=== PATIENT | male | born 1950 | race Caucasian/White ===

== ENCOUNTER 2024-06-17 20:13 | Inpatient (IN) | payer OTHER, MEDICAID ==
[~2024-06-17] VITALS: Ht 167.6 cm; Wt 78.5 kg
--- NOTE | 2024-06-17 20:30 | ED.PDOC ---
Altered Mental Status HPI Comments 67 year old male brought in by EMS presents to the ED with a chief complaint of ALOC onset today around 20:00. Per EMS, patient was with friends, they noticed he was drinking soda all day and around 20:00 was altered, confused and arms were twitching. Friends also stated patient was altered about 2 days ago, reso lved shortly after on its own. Upon EMS arrival, blood glucose read high, sinus tachycardiac with 120 bpm. It is unknown if patient is complaint with his medication. Patient is able to state his name and year. PMHx DM, HTN. Chief Complaint: ALOC Time Seen by MD: 20:22 Reviewed Notes: Medications, Allergies Allergies: Coded Allergies: No Known Drug Allergy (Verified Allergy, Unknown, 06/17/24) Information Source: Patient, Emergency Med Personnel Mode of Arrival: EMS Severity: Moderate Timing: Hours Duration: Since onset Prehospital treatment: None Quality: Change in Behavior, Confusion Recent: None History of: Diabetes Past Medical History PAST MEDICAL HISTORY: DM, HTN Surgical History: Unknown Family History Family History: Unknown Social History Smoker: Non-Smoker Alcohol: Denies ETOH Use Drugs: Denies Drug Use Lives In: Home Unable to Obtain due to: Altered Mental Status Physical Exam General Appearance: Mild Distress HEENT: Other (pupils and face symmetric. moist mucous membranes.) Neck: Full Range of Motion, Normal Inspection Respiratory: Lungs Clear, No Accessory Muscle Use, No Respiratory Distress, Normal Breath Sounds Cardiovascular: No Edema, No JVD, Tachycardia Breast Exam: Deferred Gastrointestinal: Non Tender, Soft Genitalia: Deferred Pelvic: Deferred Rectal: Deferred Extremities: Normal inspection, Normal range of motion, Non-tender, No pedal edema Neurologic: Alert (oriented x 2), Normal Affect, Normal Mood, Other (moves all extremities. no gross focal deficit.) Cerebellar Function: NOT DONE Reflexes: NOT DONE Skin: Dry, Normal Color, Warm Lymphatic: NOT DONE Was a procedure done? Was a procedure done?: No Differential Diagnosis (ALOC) Differential Diagnosis: Dehydration, DKA, Encephalopathy, Sepsis, CVA, SAH, Drug Overdose, ETOH Intoxication, Other (DKA, hyperglycemic hyperosmolar state, among others) X-Ray, Labs, Meds, VS Vital Signs Date Time Temp Pulse Resp B/P (MAP) Pulse Ox O2 Delivery O2 Flow Rate FiO2 06/17/24 20:27 98.2 120 24 170/130 (143) 98 06/17/24 20:16 105 Lab Test 06/17/24 23:36 06/17/24 22:50 06/17/24 21:51 06/17/24 20:58 Range/Units POC Glucose 434 *H 70-106 mg/dl Lactic Acid Level 3.8 *H 3.4 *H 0.4-2.0 mmol/L Troponin I High Sensitivity 12 10 </=54 ng/L White Blood Count 12.2 H 4.4-10.8 10^3/uL Red Blood Count 5.37 4.5-5.90 10^6/uL Hemoglobin 17.0 13.5-17.5 g/dL Hematocrit 49.2 41.0-53.0 % Mean Corpuscular Volume 91.6 80.0-100.0 fL Mean Corpuscular Hemoglobin 31.6 28.0-32.0 pg Mean Corpuscular Hemoglobin Concent 34.5 32.0-36.0 g/dL Red Cell Distribution Width 13.1 11.8-14.3 % Platelet Count 306 140-450 10^3/uL Mean Platelet Volume 9.0 6.9-10.8 fL Neutrophils (%) (Auto) 93.2 H 37.0-80.0 % Lymphocytes (%) (Auto) 5.1 L 10.0-50.0 % Monocytes (%) (Auto) 1.1 0.0-12.0 % Eosinophils (%) (Auto) 0.0 0.0-7.0 % Basophils (%) (Auto) 0.6 0.0-2.0 % Neutrophils # (Auto) 11.4 H 1.6-8.6 10 ^3/uL Lymphocytes # (Auto) 0.6 0.4-5.4 10 ^3/uL Monocytes # (Auto) 0.1 0-1.3 10 ^3/uL Eosinophils # (Auto) 0 0-0.8 10 ^3/uL Basophils # (Auto) 0.1 0-0.2 10 ^3/uL Nucleated Red Blood Cells 0.0 % Sodium Level 134 L 136-145 mmol/L Potassium Level 4.2 3.5-5.1 mmol/L Chloride Level 96 L 98-107 mmol/L Carbon Dioxide Level 22 20-31 mmol/L Anion Gap 16 H 5-15 Blood Urea Nitrogen 16 9-23 mg/dL Creatinine 1.25 0.700-1.30 mg/dL Glomerular Filtration Rate Calc 63 >90 mL/min BUN/Creatinine Ratio 12.8 10.0-20.0 Serum Glucose 541 *H 74-106 mg/dL Serum Osmolality 314 H 278-298 mOsm/kg Calcium Level 10.7 H 8.7-10.4 mg/dL Phosphorus Level 3.2 2.4-5.1 mg/dL Total Bilirubin 2.0 H 0.2-1.0 mg/dL Aspartate Amino Transferase (AST) 17 13-40 U/L Alanine Aminotransferase (ALT) 35 7-40 U/L Alkaline Phosphatase 128 H 46-116 U/L B-Type Natriuretic Peptide 39.53 0-100 pg/mL Total Protein 8.0 5.7-8.2 g/dL Albumin 5.4 H 3.2-4.8 g/dL Beta-Hydroxybutyric Acid 2.492 H < 0.4 mmol/L Plasma/Serum Blood Alcohol 4.3 <10 mg/dL Current Medications Medications (Trade) Dose Ordered Sig/Oj Route Start Time Stop Time Status Last Admin Sodium Chloride 1,000 ml @ 1,000 mls/hr Q1H ONCE IV 06/17/24 20:30 06/17/24 21:29 DC 06/17/24 22:33 Insulin Human Regular (InsuLIN R) 10 units ONCE ONCE IV 06/17/24 20:30 06/17/24 20:31 DC 06/17/24 20:52 Insulin Glargine (Lantus) 15 units ONCE ONCE SC 06/17/24 23:00 06/17/24 23:01 DC 06/17/24 23:30 ORDERING PHYSICIAN: KERRIE BERGER MD PROCEDURE(s): CXRP - CHEST PORTABLE REASON: aloc ORDER NUMBER(s): [id number], ACCESSION NUMBER(s): [id number] CHEST RADIOGRAPH Indication: aloc Technique: Single frontal view of the chest was obtained COMPARISON: None FINDINGS: Lines and Tubes: None Lungs: Clear Pleura: No effusion. No pneumothorax. Cardiomediastinal contours: Unremarkable Bones: Unremarkable IMPRESSION: 1. No acute disease. ATED BY: ERIKA PRIETO MD DICTATED DATE/TIME: 06/17/242129 SIGNED BY: ERIKA PRIETO MD SIGNED DATE/TIME: 06/17/242129 \ORDERING PHYSICIAN: KERRIE BERGER MD PROCEDURE(s): HWOCT - HEAD WITHOUT CONTRAST REASON: aloc ORDER NUMBER(s): [id number], ACCESSION NUMBER(s): [id number] CT BRAIN WITHOUT CONTRAST HISTORY: aloc TECHNIQUE: Axial scans were obtained from the skull base through the vertex without contrast. Sagittal and coronal reformats were generated. One or more of the following radiation dose reduction techniques were used for this examina tion: automated exposure control, adjustment of the mA and/or kV according to patient size, use of iterative reconstruction technique. COMPARISON: None FINDINGS: No acute intracranial hemorrhage or evidence of large vessel territorial infarction identified at this time. Mild generalized cerebral atrophy. Patchy periventricular and subcortical white matter hypoattenuation are noted. Bilateral basal ganglia calcifications as well. No midline shift. The basilar cisterns are patent. Opacification of the imaged right maxillary sinus which demonstrates heterogeneous calcification. The mastoid air cells are clear. No grossly dis placed calvarial abnormalities identified. IMPRESSION: No acute intracranial findings. Nonspecific white matter changes which may be sequelae of chronic microangiopathy. If there is persistent clinical concern, especially for infarct, MRI is recommended to further evaluate. Opacification of the partially imaged right maxillary sinus with calcifications. This may be sequelae of chronic sinusitis and/or remote injury. Please correlate clinically. ATED BY: SHEN ESPINO MD DICTATED DATE/TIME: 06/17/242137 SIGNED BY: SHEN ESPINO MD SIGNED DATE/TIME: 06/17/242137 X-Ray, Labs, Meds, VS Comment 67-year-old male with a history of diabetes and hypertension brought in by EMS with altered mental status and hyperglycemia Vitals remarkable for heart rate 120 Exam remarkable for confusion, oriented x2, tachycardia Rhythm strip independently interpreted by me: Sinus tach, rate 115, no ectopy. Chest x-ray unremarkable Head CT IMPRESSION: No acute intracranial findings. Nonspecific white matter changes which may be sequelae of chronic microangiopathy. If there is persistent clinical concern, especially for infarct, MRI is recommended to further evaluate. Opacification of the partially imaged right maxillary sinus with calcifications. This may be sequelae of chronic sinusitis and/or remote injury. Please correlate clinically. CBC remarkable for WBC 12.2, metabolic panel remarkable for sodium 134, chloride 96, glucose 541, anion gap 16, lactate 3.4, beta hydroxybutyrate 2.492, troponins negative Patient treated with the following in the ED: 1 L 0.9 normal saline IV bolus, regular insulin 10 units IV, started on insulin drip protocol On re-evaluation, patient is still confused. He refused ABG. Plan is to admit the patient for glucose control, and Neurology evaluation. Time of 1ST Reevaluation: 20:52 Reevaluation 1ST: Unchanged Patient Education/Counseling: Diagnosis, Treatment, Prognosis Family Education/Counseling: No Family Present Additional Information The following tests were ordered, and results were reviewed by me: EKG, TROP - x3, CBC, CMP, LA W/ REFLEX, UA, XY CHEST, DRUG SCREEN, BLOOD CULTURE, BLOOD ALCOHOL, BNP, ABG W/ CO-0X, BETA-HYDROXYBUTYRATE, CT HEAD WO CONTRAST I reviewed and agreed with the following test results read by other providers: CT HEAD WO CONTRAST, XY CHEST Additional Information was gathered from interviewing the following independent historians: EMS I discussed treatment and results with medical personnel and: patient Departure 1 Departure Time of Disposition: 23:02 Impression: Primary Impression: Metabolic encephalopathy Additional Impression: DKA (diabetic ketoacidosis) Qualified Codes: E13.10 - Other specified diabetes mellitus with ketoacidosis without coma Disposition: ADMITTED INPATIENT Admit to: [facility] Condition: Serious Critical Care Note Critical Care Time?: Yes (45 min-critical care time only) Critical care comment: Critical care time including multiple bedside re-evaluations, review of lab and imaging studies, discussion of the case with the admitting provider. Patient is high risk for metabolic and/or neurologic decompensation. Stability Stability form required: No Heart Score Heart Score: Heart Score Response (Comments) Value History N/A 0 EKG N/A 0 Age N/A 0 Risk Factors N/A 0 Troponin N/A 0 Total 0 I personally scribed for KERRIE BERGER MD ([facility] on 2/12/25 at 20:30. Electronically submitted by Maranda Gonzalez ([email or web address]). I personally scribed for KERRIE BERGER MD ([facility]) on 06/17/24 at 20:32. Electronically submitted by Maranda Gonzalez ([email or web address]). I personally scribed for KERRIE BERGER MD ([facility]) on 06/17/24 at 21:49. Electronically submitted by Maranda Gonzalez ([email or web address]). KERRIE BERGER MD Jun 17, 2024 20:30
[2024-06-17] MEDS: InsuLIN REG 1unit/0.01ml Soln (100units/ml) IV ONE (20:52)
[2024-06-17 21:18] LABS: Basophils # (auto) 0.1 10 ^3/uL (0-0.2); Basophils % (auto) 0.6 % (0.0-2.0); Eosinophils # (auto) 0 10 ^3/uL (0-0.8); Hematocrit 49.2 % (41.0-53.0); Lymphocytes # (auto) 0.6 10 ^3/uL (0.4-5.4); Lymphocytes % (auto) 5.1 % (10.0-50.0); Mean Corpuscular Hemoglobin 31.6 pg (28.0-32.0); Mean Corpuscular Hgb Conc. 34.5 g/dL (32.0-36.0); Mean Corpuscular Volume 91.6 fL (80.0-100.0); Monocytes # (auto) 0.1 10 ^3/uL (0-1.3); Monocytes % (auto) 1.1 % (0.0-12.0); Neutrophils # (auto) 11.4 10 ^3/uL (1.6-8.6); Neutrophils % (auto) 93.2 % (37.0-80.0); Platelet Count (auto) 306 10^3/uL (140-450); Red Blood Cells 5.37 10^6/uL (4.5-5.90); Red Cell Distribution Width 13.1 % (11.8-14.3); White Blood Cell 12.2 10^3/uL (4.4-10.8)
[2024-06-17 21:29] LABS: Alanine Aminotransferase 35 U/L (7-40); Anion Gap 16 (5-15); Aspartate Aminotransferase 17 U/L (13-40); BUN/Creatinine Ratio 12.8 (10.0-20.0); Blood Alcohol 4.3 mg/dL (<10); Blood Urea Nitrogen 16 mg/dL (9-23); Carbon Dioxide 22 mmol/L (20-31); Potassium 4.2 mmol/L (3.5-5.1)
--- NOTE | 2024-06-17 21:33 | DVH ---
CHEST RADIOGRAPH Indication: aloc Technique: Single frontal view of the chest was obtained COMPARISON: None FINDINGS: Lines and Tubes: None Lungs: Clear Pleura: No effusion. No pneumothorax. Cardiomediastinal contours: Unremarkable Bones: Unremarkable IMPRESSION: 1. No acute disease.
[2024-06-17 21:40] LABS: Albumin 5.4 g/dL (3.2-4.8); Alkaline Phosphatase 128 U/L (46-116); Calcium 10.7 mg/dL (8.7-10.4); Chloride 96 mmol/L (98-107); Sodium 134 mmol/L (136-145)
--- NOTE | 2024-06-17 21:40 | DVH ---
CT BRAIN WITHOUT CONTRAST HISTORY: aloc TECHNIQUE: Axial scans were obtained from the skull base through the vertex without contrast. Sagitta l and coronal reformats were generated. One or more of the following radiation dose reduction techniq ues were used for this examination: automated exposure control, adjustment of the mA and/or kV accord ing to patient size, use of iterative reconstruction technique. COMPARISON: None FINDINGS: No acute intracranial hemorrhage or evidence of large vessel territorial infarction identified at thi s time. Mild generalized cerebral atrophy. Patchy periventricular and subcortical white matter hypoattenuati on are noted. Bilateral basal ganglia calcifications as well. No midline shift. The basilar cisterns are patent. Opacification of the imaged right maxillary sinus which demonstrates heterogeneous calcification. The mastoid air cells are clear. No grossly displaced calvarial abnormalities identified. IMPRESSION: No acute intracranial findings. Nonspecific white matter changes which may be sequelae of chronic microangiopathy. If there is persis tent clinical concern, especially for infarct, MRI is recommended to further evaluate. Opacification of the partially imaged right maxillary sinus with calcifications. This may be sequelae of chronic sinusitis and/or remote injury. Please correlate clinically.
[2024-06-17 21:49] LABS: Glucose 541 mg/dL (74-106); Lactic Acid w/Reflex 3.4 mmol/L (0.4-2.0)
[2024-06-17] MEDS: SODIUM CHLORIDE 0.9% 1,000 ML IV ONE (22:33)
[2024-06-17] MEDS ORDERED: INSULIN DRIP 100 UNIT/100ML 100 ML IV SCH (23:00)
[2024-06-17] MEDS ORDERED: DEXTROSE (50%) 50ML SYRG IV PRN ×2 (23:00→23:45)
[2024-06-17] MEDS: INSULIN LANTUS (GLARGINE) 1 /0.01ml (100units/ml) SC ONE (23:30)
[2024-06-17] MEDS ORDERED: NITROGLYCERIN 0.4 MG SL TAB SL PRN (23:45)
[2024-06-17] MEDS ORDERED: ONDANSETRON HCL 4 MG/2 ML VIAL IV PRN (23:45)
[2024-06-17] MEDS ORDERED: INSULIN LANTUS (GLARGINE) 1 /0.01ml (100units/ml) SC ONE (23:45)
[2024-06-17] MEDS ORDERED: MORPHINE SULFATE INJ 2 MG/ml SYRG IV PRN (23:45)
[2024-06-18] VITALS (10 sets, daily range): BP systolic 137–162; BP diastolic 52–98; PULSE 70–91; RESP 12–20; TEMP 97.8–98.1; O2SAT 95–98
[2024-06-18] MEDS: METOPROLOL TARTRATE 25 MG TAB PO ONE (00:06)
[2024-06-18] MEDS: ACCU-CHEK COMFORT CURVE STRIP VI SCH ×2 (00:46→23:15)
[2024-06-18] MEDS: INSULIN DRIP 100 UNIT/100ML 100 ML IV SCH (00:48)
[2024-06-18 00:50] LABS: Chloride 101 mmol/L (98-107); Potassium 3.8 mmol/L (3.5-5.1); Sodium 136 mmol/L (136-145)
[2024-06-18 00:51] LABS: Anion Gap 15 (5-15)
[2024-06-18 00:52] LABS: Calcium 10.1 mg/dL (8.7-10.4)
[2024-06-18 00:56] LABS: BUN/Creatinine Ratio 14.4 (10.0-20.0); Blood Urea Nitrogen 15 mg/dL (9-23)
[2024-06-18 01:00] LABS: Carbon Dioxide 20 mmol/L (20-31); Glucose 400 mg/dL (74-106)
[2024-06-18] MEDS ORDERED: ACCU-CHEK COMFORT CURVE STRIP VI SCH ×3 (02:00→17:00)
[2024-06-18] MEDS: SODIUM CHLORIDE 0.9% 1,000 ML IV SCH ×3 (04:13→23:17)
--- NOTE | 2024-06-18 05:12 | DVHHP2 ---
History of Present Illness Reason for Visit: Altered mental status History of Present Illness 67-year-old male presents for evaluation of altered mental status. Patient has been noted to be progressively weaker and became more lethargic throughout the day by his friends yesterday. When EMS arrived patient's blood sugar was re ading high. Patient is currently lethargic oriented x2. No neurologic focal deficits noted. Denies chest pain. Past Medical History Hypertension diabetes mellitus Past Surgical History Denies Family History Denies Smoke: No ALCOHOL: none Drugs: None Lives: Homeless Review of Systems Review of Systems Review of systems are limited due to the patient's altered mental status. Allergies: Coded Allergies: No Known Drug Allergy (Verified Allergy, Unknown, 06/17/24) Medications Current Medications Medications Dose Ordered Sig/Oj Route Start Time Stop Time Status Last Admin Dose Admin Sodium Chloride 1,000 ml @ 250 mls/hr Q4H IV 06/18/24 03:45 06/18/24 05:44 06/18/24 04:13 250 MLS/HR Sodium Chloride 1,000 ml @ 150 mls/hr Q6H40M IV 06/18/24 05:45 Insulin Human (Reg)/Sodium Chloride 100 ml @ 0.5 mls/hr Q24H IV 06/17/24 23:45 06/18/24 00:48 6 MLS/HR Dextrose 50 ml UD PRN IV 06/17/24 23:45 Insulin Glargine 15 units DAILY SC 06/18/24 10:00 Ondansetron HCl 4 mg Q4HP PRN IV 06/17/24 23:45 Nitroglycerin 0.4 mg Q5MINP PRN SL 06/17/24 23:45 Morphine Sulfate 2 mg Q30M PRN IV 06/17/24 23:45 Diagnostic Test (Pha) 1 strip Q90MIN 06/18/24 04:00 UNV Exam Vital Signs Vital Signs Date Time Temp Pulse Resp B/P (MAP) Pulse Ox O2 Delivery O2 Flow Rate FiO2 06/18/24 01:00 92 06/17/24 20:27 98.2 24 170/130 (143) 98 Exam Gen: 74-year-old male in mild distress Skin: Warm, dry, normal color and texture, no rash. HEENT: Normocephalic atraumatic, mucous membranes moist and pink. Neck: Cervical and supraclavicular nodes normal without enlargement, trachea is midline, thyroid gland is normal without masses. Pulmonary: Clear to auscultation and percussion bilaterally. Cardiac: Sinus tachycardia Abdomen: Soft, nontender, nondistended, bowel sounds present all 4 quadrants, no guarding, no rigidity, no organomegaly. Extremities: No cyanosis, clubbing, no edema Neuro: Cranial nerves II through XII grossly intact, normal affect and speech, no focal motor deficits. Labs/Xrays ORDERING PHYSICIAN: KERRIE BERGER MD PROCEDURE(s): CXRP - CHEST PORTABLE REASON: aloc ORDER NUMBER(s): [id number], ACCESSION NUMBER(s): [id number] CHEST RADIOGRAPH Indication: aloc Technique: Single frontal view of the chest was obtained COMPARISON: None FINDINGS: Lines and Tubes: None Lungs: Clear Pleura: No effusion. No pneumothorax. Cardiomediastinal contours: Unremarkable Bones: Unremarkable IMPRESSION: 1. No acute disease. ORDERING PHYSICIAN: KERRIE BERGER MD PROCEDURE(s): HWOCT - HEAD WITHOUT CONTRAST REASON: aloc ORDER NUMBER(s): [id number], ACCESSION NUMBER(s): [id number] CT BRAIN WITHOUT CONTRAST HISTORY: aloc TECHNIQUE: Axial scans were obtained from the skull base through the vertex without contrast. Sagittal and coronal reformats were generated. One or more of the following radiation dose reduction techniques were used for this examination: automated exposure control, adjustment of the mA and/or kV according to patient size, use of iterative reconstruction technique. COMPARISON: None FINDINGS: No acute intracranial hemorrhage or evidence of large vessel territorial infarction identified at this time. Mild generalized cerebral atrophy. Patchy periventricular and subcortical white matter hypoattenuation are noted. Bilateral basal ganglia calcifications as well. No midline shift. The basilar cisterns are patent. Opacification of the imaged right maxillary sinus which demonstrates heterogeneous calcification. The mastoid air cells are clear. No grossly displaced calvarial abnormalities identified. IMPRESSION: No acute intracranial findings. Nonspecific white matter changes which may be sequelae of chronic microangiopathy. If there is persistent clinical concern, especially for infarct, MRI is recommended to further evaluate. Opacification of the partially imaged right maxillary sinus with calcifications. This may be sequelae of chronic sinusitis and/or remote injury. Please correlate clinically. Labs Test 06/18/24 03:54 06/18/24 00:25 06/17/24 22:50 06/17/24 21:51 Range/Units POC Glucose 226 H 70-106 mg/dl Sodium Level 136 136-145 mmol/L Potassium Level 3.8 3.5-5.1 mmol/L Chloride Level 101 98-107 mmol/L Carbon Dioxide Level 20 20-31 mmol/L Anion Gap 15 5-15 Blood Urea Nitrogen 15 9-23 mg/dL Creatinine 1.04 0.700-1.30 mg/dL Glomerular Filtration Rate Calc 75 >90 mL/min BUN/Creatinine Ratio 14.4 10.0-20.0 Serum Glucose 400 H 74-106 mg/dL Calcium Level 10.1 8.7-10.4 mg/dL Lactic Acid Level 3.8 *H 0.4-2.0 mmol/L Troponin I High Sensitivity 12 </=54 ng/L Test 06/17/24 20:58 Range/Units White Blood Count 12.2 H 4.4-10.8 10^3/uL Red Blood Count 5.37 4.5-5.90 10^6/uL Hemoglobin 17.0 13.5-17.5 g/dL Hematocrit 49.2 41.0-53.0 % Mean Corpuscular Volume 91.6 80.0-100.0 fL Mean Corpuscular Hemoglobin 31.6 28.0-32.0 pg Mean Corpuscular Hemoglobin Concent 34.5 32.0-36.0 g/dL Red Cell Distribution Width 13.1 11.8-14.3 % Platelet Count 306 140-450 10^3/uL Mean Platelet Volume 9.0 6.9-10.8 fL Neutrophils (%) (Auto) 93.2 H 37.0-80.0 % Lymphocytes (%) (Auto) 5.1 L 10.0-50.0 % Monocytes (%) (Auto) 1.1 0.0-12.0 % Eosinophils (%) (Auto) 0.0 0.0-7.0 % Basophils (%) (Auto) 0.6 0.0-2.0 % Neutrophils # (Auto) 11.4 H 1.6-8.6 10 ^3/uL Lymphocytes # (Auto) 0.6 0.4-5.4 10 ^3/uL Monocytes # (Auto) 0.1 0-1.3 10 ^3/uL Eosinophils # (Auto) 0 0-0.8 10 ^3/uL Basophils # (Auto) 0.1 0-0.2 10 ^3/uL Nucleated Red Blood Cells 0.0 % Serum Osmolality 314 H 278-298 mOsm/kg Phosphorus Level 3.2 2.4-5.1 mg/dL Total Bilirubin 2.0 H 0.2-1.0 mg/dL Aspartate Amino Transferase (AST) 17 13-40 U/L Alanine Aminotransferase (ALT) 35 7-40 U/L Alkaline Phosphatase 128 H 46-116 U/L B-Type Natriuretic Peptide 39.53 0-100 pg/mL Total Protein 8.0 5.7-8.2 g/dL Albumin 5.4 H 3.2-4.8 g/dL Beta-Hydroxybutyric Acid 2.492 H < 0.4 mmol/L Plasma/Serum Blood Alcohol 4.3 <10 mg/dL Assessment/Plan Assessment/Plan Assessment Diabetic ketoacidosis Leukocytosis Severe dehydration SIRS Admit the patient to [facility] to the hospitalist DKA protocol Blood cultures pending Rocephin Replete electrolytes Continue treatment per orders Total critical care time excluding procedures performed is 50 minutes. Plan discussed with: Patient My Orders Orders - CHESTER ROSARIO AGACNP Procedure Category Date Status Time Drug Screen LAB 06/17/24 Logged 23:35 Urinalysis LAB 06/17/24 Logged 23:35 Sodium Chloride 0.9% PHA 06/18/24 In Process 03:45 Sodium Chloride 0.9% PHA 06/18/24 In Process 05:45 Insulin Drip 100 PHA 06/17/24 In Process Unit/100ml (Myxredlin 23:45 Dextrose 50% Syringe PHA 06/17/24 In Process 23:45 Basic Metabolic Panel LAB 06/18/24 Logged 17:38 Neurological PAGE 06/17/24 In Process Assessment 23:38 Vs/Hemodynamics PAGE 06/17/24 In Process 23:38 Insulin Lantus PHA 06/18/24 In Process (Glargine) (Lantus) 10:00 Admit ADMIT 06/17/24 Transmitted 23:38 Ondansetron Hcl PHA 06/17/24 In Process (Zofran) 23:45 Complete Blood Count LAB 06/18/24 Logged 04:00 Comprehensive LAB 06/18/24 Logged Metabolic Panel 04:00 Condition: Critical PAGE 06/17/24 In Process 23:38 Bedrest With Bathroom PAGE 06/17/24 In Process Privileg 23:38 Nitroglycerin PHA 06/17/24 In Process Sublingual (Ntrostat 23:45 Morphine Sulfate PHA 06/17/24 In Process Injection 23:45 Stat Ekg For Chest PAGE 06/17/24 In Process Pain 23:38 Notify Md Of Changes PAGE 06/17/24 In Process From Base 23:38 Yarn Dry Room Worker For PAGE 06/17/24 In Process 24 Hours 23:38 Emergency Dysrhythmia PAGE 06/17/24 In Process Protocol 23:38 Rhythm Strips Once PAGE 06/17/24 In Process Every Shift 23:38 Oxygen By Nasal RT 06/17/24 Transmitted Cannula 23:38 Basic Metabolic Panel LAB 06/18/24 Logged 00:14 Glucose Blood PHA 06/18/24 Pending (Accu-Chek Comfort 04:00 Consistent DIET 06/18/24 [facility]Di[facility] Breakfast Transfer Orders XFER 06/18/24 Transmitted 05:03 Blood Culture ORA 06/18/24 Uncollected 05:03 Ceftriaxone Ivpb PHA 06/18/24 Transmitted Rocephin 05:15 NS PHA 06/18/24 Transmitted 05:15 Date of Service: Jun 17, 2024 Billing Provider: CHESTER ROSARIO Common Visit Codes: [id number] CARE 30-74 MIN CHESTER ROSARIO Jun 18, 2024 05:12
[2024-06-18] MEDS ORDERED: SODIUM CHLORIDE 0.9% 500 ML IV ONE (05:15)
[2024-06-18] MEDS ORDERED: cefTRIAXone 1GM/50ML D5W 50 ML IV SCH (05:15)
[2024-06-18 05:59] LABS: Basophils # (auto) 0.1 10 ^3/uL (0-0.2); Basophils % (auto) 0.5 % (0.0-2.0); Eosinophils # (auto) 0 10 ^3/uL (0-0.8); Hematocrit 44.4 % (41.0-53.0); Hemoglobin 15.6 g/dL (13.5-17.5); Lymphocytes # (auto) 1.7 10 ^3/uL (0.4-5.4); Lymphocytes % (auto) 12.2 % (10.0-50.0); Mean Corpuscular Hemoglobin 31.8 pg (28.0-32.0); Mean Corpuscular Hgb Conc. 35.2 g/dL (32.0-36.0); Mean Corpuscular Volume 90.4 fL (80.0-100.0); Monocytes # (auto) 1.2 10 ^3/uL (0-1.3); Monocytes % (auto) 8.8 % (0.0-12.0); Neutrophils # (auto) 10.8 10 ^3/uL (1.6-8.6); Neutrophils % (auto) 78.5 % (37.0-80.0); Platelet Count (auto) 267 10^3/uL (140-450); Red Blood Cells 4.92 10^6/uL (4.5-5.90); Red Cell Distribution Width 13.2 % (11.8-14.3); White Blood Cell 13.7 10^3/uL (4.4-10.8)
[2024-06-18 06:14] LABS: Alanine Aminotransferase 28 U/L (7-40); Alkaline Phosphatase 100 U/L (46-116); Anion Gap 12 (5-15); Aspartate Aminotransferase 18 U/L (13-40); BUN/Creatinine Ratio 14.8 (10.0-20.0); Blood Urea Nitrogen 13 mg/dL (9-23); Carbon Dioxide 22 mmol/L (20-31); Chloride 105 mmol/L (98-107); Sodium 139 mmol/L (136-145); Total Protein 7.4 g/dL (5.7-8.2)
[2024-06-18 06:29] LABS: Albumin 4.8 g/dL (3.2-4.8); Bilirubin, Total 1.7 mg/dL (0.2-1.0); Calcium 10.5 mg/dL (8.7-10.4); Glucose 198 mg/dL (74-106)
[2024-06-18] MEDS: INSULIN LANTUS (GLARGINE) 1 /0.01ml (100units/ml) SC SCH (09:26)
[2024-06-18 09:30] LABS: Urine Bacteria FEW /hpf (None Seen); Urine Blood 1+ /uL (Negative); Urine Budding Yeast OCCASIONAL /hpf (None Seen); Urine Clarity Clear (Clear); Urine Color Yellow (Yellow); Urine Mucus FEW (None Seen); Urine Protein, UAD 1+ (Negative); Urine Specific Gravity 1.038 (1.001-1.035); Urine Squamous Epithelial Cell FEW /hpf (<5); Urine Urobilinogen Normal (Negative); Urine WBC 18 /HPF (0-3); Urine pH 5.5 (5.0-9.0)
[2024-06-18] MEDS ORDERED: INSULIN LANTUS (GLARGINE) 1 /0.01ml (100units/ml) SC SCH (10:00)
[2024-06-18 10:27] LABS: Cocaine Screen, Urine Neg (NEGATIVE)
[2024-06-18 13:09] LABS: Cannabinoid Screen, Urine Neg (NEGATIVE); Opiate Scree,Urine Neg (NEGATIVE); Phencyclidine Screen, Urine Neg (NEGATIVE)
--- NOTE | 2024-06-18 13:11 | DVHPN2 ---
Subjective Came with altered level of consciousness and elevated blood glucose Changes from previous H/P or p: Changes Objective Vitals Vital Signs Date Time Temp Pulse Resp B/P (MAP) Pulse Ox O2 Delivery O2 Flow Rate FiO2 06/18/24 12:00 72 06/18/24 12:00 20 95 Room Air* 0 21 06/18/24 07:00 157/82 (107) 06/18/24 01:00 98.2 98.2 Intake/Output Intake and Output 06/18/24 07:00 Intake Total 523 ml Balance 523 ml Intake IV Total 523 ml General Appearance: Alert, Other (Oriented x1) Lungs: Clear to auscultation, Normal air movement Cardiovascular: Regular rate, Normal S1, Normal S2 Abdomen: Normal bowel sounds, Soft, No tenderness Extremities: No edema Medications Current Medications Medications Dose Ordered Sig/Oj Route Start Time Stop Time Status Last Admin Dose Admin Sodium Chloride 1,000 ml @ 150 mls/hr Q6H40M IV 06/18/24 05:45 06/18/24 06:26 150 MLS/HR Insulin Human (Reg)/Sodium Chloride 100 ml @ 0.5 mls/hr Q24H IV 06/17/24 23:45 06/18/24 00:48 6 MLS/HR Dextrose 50 ml UD PRN IV 06/17/24 23:45 Insulin Glargine 15 units DAILY SC 06/18/24 10:00 06/18/24 09:26 15 UNITS Ondansetron HCl 4 mg Q4HP PRN IV 06/17/24 23:45 Nitroglycerin 0.4 mg Q5MINP PRN SL 06/17/24 23:45 Morphine Sulfate 2 mg Q30M PRN IV 06/17/24 23:45 Diagnostic Test (Pha) 1 strip Q90MIN 06/18/24 04:00 UNV Ceftriaxone Sodium 50 ml @ 100 mls/hr DAILY@09 IV 06/18/24 05:15 UNV Laboratory Results Laboratory Tests 06/18/24 05:21 Chemistry Test 06/17/24 20:58 06/18/24 00:25 06/18/24 05:21 Albumin 5.4 g/dL (3.2-4.8) H 4.8 g/dL (3.2-4.8) Calcium Level 10.7 mg/dL (8.7-10.4) H 10.1 mg/dL (8.7-10.4) 10.5 mg/dL (8.7-10.4) H Phosphorus Level 3.2 mg/dL (2.4-5.1) Total Protein 8.0 g/dL (5.7-8.2) 7.4 g/dL (5.7-8.2) Cardiac Markers Test 06/17/24 20:58 B-Type Natriuretic Peptide 39.53 pg/mL (0-100) LFT Test 06/17/24 20:58 06/18/24 05:21 Alanine Aminotransferase (ALT) 35 U/L (7-40) 28 U/L (7-40) Alkaline Phosphatase 128 U/L (46-116) H 100 U/L (46-116) Aspartate Amino Transferase (AST) 17 U/L (13-40) 18 U/L (13-40) Total Bilirubin 2.0 mg/dL (0.2-1.0) H 1.7 mg/dL (0.2-1.0) H Urinalysis Test 06/18/24 08:30 Urine Color Yellow (Yellow) Urine Clarity Clear (Clear) Urine pH 5.5 (5.0-9.0) Urine Specific Baird 1.038 (1.001-1.035) Urine Protein 1+ (Negative) H Urine Ketones 2+ (Negative) H Urine Blood 1+ /uL (Negative) H Urine Nitrite Negative (Negative) Urine Bilirubin Negative (Negative) Urine Urobilinogen Normal mg/dL (Negative) Urine Leukocyte Esterase 2+ /uL (Negative) Urine RBC 9 /hpf (0 - 3) Urine Microscopic WBC 18 /HPF (0-3) H Urine Squamous Epithelial Cells Few /hpf (<5) Urine Bacteria Few /hpf (None Seen) H Urine Mucus Few (None Seen) Urine Yeast (Budding) Occasional /hpf (None Urine Glucose 4+ mg/dL (Normal) H Assessment/Plan Assessment/Plan Acute diabetic ketoacidosis Type 2 diabetes Uncontrolled diabetes Hypertension UTI Acute kidney injury hemodynamically mediated Hyponatremia Plan Discontinue insulin drip Start Accu-Cheks Subcutaneous Lantus IV fluids Downgrade to med surge Physical therapy Rocephin IV for the UTI Monitor the patient closely Plan discussed with: Patient My Orders Orders - JOSE GILLILAND MD Procedure Category Date Status Time Sodium Chloride 0.9% PHA 06/18/24 Verified 13:15 Glucose Blood PHA 06/18/24 Verified (Accu-Chek Comfort 17:00 Bedtime Insulin Scale PHA 06/18/24 Verified 22:00 Moderate Insulin Ss PHA 06/18/24 Verified 17:00 Dextrose 50% Syringe PHA 06/18/24 Verified 13:15 Comprehensive LAB 06/19/24 Verified Metabolic Panel 04:00 Magnesium LAB 06/19/24 Verified 04:00 Pt Request For Service PT 06/18/24 Verified 13:06 Date of Service: Jun 18, 2024 Billing Provider: JOSE GILLILAND MD Common Visit Codes: [id number] INP/OBS CARE(HIGH) JOSE GILLILAND MD Jun 18, 2024 13:11
[2024-06-18] MEDS ORDERED: cefTRIAXone 1GM/50ML D5W 50 ML IV ONE (13:15)
[2024-06-18] MEDS ORDERED: DEXTROSE (50%) 50ML SYRG IV PRN (13:15)
[2024-06-18 13:21] LABS: Barbiturate Scree,Urine Neg (NEGATIVE); Benzodiazephine Screen, Urine Neg (NEGATIVE)
[2024-06-18 14:04] LABS: Amphetamine Screen, Urine Neg (NEGATIVE)
[2024-06-18] MEDS: InsuLIN REG 1unit/0.01ml Soln (100units/ml) ONE (17:41)
[2024-06-18] MEDS: cefTRIAXone 1GM/50ML D5W 50 ML IV ONE ×2 (21:00→23:15)
[2024-06-18] MEDS: InsuLIN REG 1unit/0.01ml Soln (100units/ml) SC SCH (23:17)
[2024-06-19] VITALS (9 sets, daily range): BP systolic 125–172; BP diastolic 58–76; PULSE 58–70; RESP 14–22; TEMP 97.4–98.3; O2SAT 92–98
[2024-06-19] MEDS: InsuLIN REG 1unit/0.01ml Soln (100units/ml) SC SCH (05:30)
[2024-06-19] MEDS ORDERED: cefTRIAXone 1GM/50ML D5W 50 ML IV SCH (09:00)
[2024-06-19] MEDS: cefTRIAXone 1GM/50ML D5W 50 ML IV SCH (09:37)
--- NOTE | 2024-06-19 11:54 | DVHPN2 ---
Subjective Says he feels better Blood glucose is better controlled Changes from previous H/P or p: Changes Objective Vitals Vital Signs Date Time Temp Pulse Resp B/P (MAP) Pulse Ox O2 Delivery O2 Flow Rate FiO2 06/19/24 08:00 94 Room Air* 0 21 06/19/24 05:00 97.4 62 19 125/62 (83) 97.4 Intake/Output Intake and Output 06/19/24 07:00 Intake Total 2589.5 ml Output Total 400 ml Balance 2189.5 ml Intake Oral 1530 ml IV Total 1059.5 ml Output Urine Total 400 ml General Appearance: Alert, Other (Oriented x1) Lungs: Clear to auscultation, Normal air movement Cardiovascular: Regular rate, Normal S1, Normal S2 Abdomen: Normal bowel sounds, Soft, No tenderness Extremities: No edema Medications Current Medications Medications Dose Ordered Sig/Oj Route Start Time Stop Time Status Last Admin Dose Admin Insulin Glargine 15 units DAILY SC 06/18/24 10:00 06/19/24 09:50 15 UNITS Ondansetron HCl 4 mg Q4HP PRN IV 06/17/24 23:45 Nitroglycerin 0.4 mg Q5MINP PRN SL 06/17/24 23:45 Morphine Sulfate 2 mg Q30M PRN IV 06/17/24 23:45 Sodium Chloride 1,000 ml @ 100 mls/hr Q10H IV 06/18/24 13:15 06/18/24 23:17 100 MLS/HR Insulin Human Regular HS SC 06/18/24 22:00 06/18/24 23:17 6 UNITS Insulin Human Regular AC SC 06/18/24 17:00 Dextrose 50 ml UD PRN IV 06/18/24 13:15 Diagnostic Test (Pha) 1 strip ACHS 06/18/24 22:00 06/19/24 05:32 1 STRIP Ceftriaxone Sodium 50 ml @ 100 mls/hr DAILY IV 06/19/24 10:00 06/19/24 09:37 100 MLS/HR Laboratory Results Laboratory Tests 06/18/24 05:21 Chemistry Test 06/19/24 10:48 Albumin Pending Calcium Level Pending Magnesium Level Pending Total Protein Pending LFT Test 06/19/24 10:48 Alanine Aminotransferase (ALT) Pending Alkaline Phosphatase Pending Aspartate Amino Transferase (AST) Pending Total Bilirubin Pending Urinalysis Test 06/18/24 08:30 Urine Color Yellow (Yellow) Urine Clarity Clear (Clear) Urine pH 5.5 (5.0-9.0) Urine Specific [place] 1.038 (1.001-1.035) Urine Protein 1+ (Negative) H Urine Ketones 2+ (Negative) H Urine Blood 1+ /uL (Negative) H Urine Nitrite Negative (Negative) Urine Bilirubin Negative (Negative) Urine Urobilinogen Normal mg/dL (Negative) Urine Leukocyte Esterase 2+ /uL (Negative) Urine RBC 9 /hpf (0 - 3) Urine Microscopic WBC 18 /HPF (0-3) H Urine Squamous Epithelial Cells Few /hpf (<5) Urine Bacteria Few /hpf (None Seen) H Urine Mucus Few (None Seen) Urine Yeast (Budding) Occasional /hpf (None Urine Glucose 4+ mg/dL (Normal) H Microbiology Microbiology Date/Time Source Procedure Growth Status 06/17/24 20:58 Blood Blood Culture - Preliminary NO GROWTH AFTER 24 HOURS OF INCUBATION. Resulted Assessment/Plan Assessment/Plan Acute diabetic ketoacidosis Type 2 diabetes Uncontrolled diabetes Hypertension UTI Acute kidney injury hemodynamically mediated Hyponatremia Plan Discontinue insulin drip Start Accu-Cheks Subcutaneous Lantus IV fluids Downgrade to med [facility] Physical therapy Rocephin IV for the UTI Monitor the patient closely 06/19/2024: Continue IV Rocephin Continue the current management including sliding scale and Lantus Physical therapy Discharge planning Plan discussed with: Patient My Orders Orders - JOSE GILLILAND MD Procedure Category Date Status Time Sodium Chloride 0.9% PHA 06/18/24 In Process 13:15 Insulin R (Human) PHA 06/18/24 In Process (Insulin R) 22:00 Insulin R (Human) PHA 06/18/24 In Process (Insulin R) 17:00 Dextrose 50% Syringe PHA 06/18/24 In Process 13:15 Comprehensive LAB 06/19/24 In Process Metabolic Panel 04:00 Magnesium LAB 06/19/24 In Process 04:00 Pt Request For Service PT 06/18/24 Logged 13:06 Transfer Orders XFER 06/18/24 Transmitted 18:59 Pharmacy PAGE 06/18/24 In Process Clarification: 21:04 Date of Service: Jun 19, 2024 Billing Provider: JOSE GILLILAND MD Common Visit Codes: [id number] INP/OBS CARE(HIGH) JOSE GILLILAND MD Jun 19, 2024 11:54
[2024-06-19 12:43] LABS: Alanine Aminotransferase 26 U/L (7-40); Albumin 4.2 g/dL (3.2-4.8); Alkaline Phosphatase 85 U/L (46-116); Anion Gap 11 (5-15); Aspartate Aminotransferase 23 U/L (13-40); BUN/Creatinine Ratio 18.8 (10.0-20.0); Blood Urea Nitrogen 15 mg/dL (9-23); Calcium 9.2 mg/dL (8.7-10.4); Carbon Dioxide 23 mmol/L (20-31); Chloride 101 mmol/L (98-107)
[2024-06-19 12:44] LABS: Glucose 250 mg/dL (74-106); Magnesium 1.6 mg/dL (1.6-2.6); Sodium 135 mmol/L (136-145); Total Protein 6.6 g/dL (5.7-8.2)
--- NOTE | 2024-06-19 13:32 | ECG ---
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
[2024-06-19] MEDS: POTASSIUM CHL 20 Meq TABLET PO ONE (13:50)
[2024-06-20] VITALS (8 sets, daily range): BP systolic 130–166; BP diastolic 66–82; PULSE 60–87; RESP 17–19; TEMP 97.3–98.1; O2SAT 96–100
--- NOTE | 2024-06-20 12:04 | DVHPN2 ---
Subjective No new complaints Changes from previous H/P or p: Changes Objective Vitals Vital Signs Date Time Temp Pulse Resp B/P (MAP) Pulse Ox O2 Delivery O2 Flow Rate FiO2 06/20/24 08:38 98.0 66 19 166/78 (107) 96 98.0 06/20/24 08:00 Room Air* 0 21 Intake/Output Intake and Output 06/20/24 07:00 Intake Total 1800 ml Output Total 450 ml Balance 1350 ml Intake Oral 1250 ml IV Total 550 ml Output Urine Total 450 ml # Voids 5 General Appearance: Alert, Other (Oriented x1) Lungs: Clear to auscultation, Normal air movement Cardiovascular: Regular rate, Normal S1, Normal S2 Abdomen: Normal bowel sounds, Soft, No tenderness Extremities: No edema Medications Current Medications Medications Dose Ordered Sig/Oj Route Start Time Stop Time Status Last Admin Dose Admin Insulin Glargine 15 units DAILY SC 06/18/24 10:00 06/20/24 11:21 15 UNITS Ondansetron HCl 4 mg Q4HP PRN IV 06/17/24 23:45 Nitroglycerin 0.4 mg Q5MINP PRN SL 06/17/24 23:45 Morphine Sulfate 2 mg Q30M PRN IV 06/17/24 23:45 Sodium Chloride 1,000 ml @ 100 mls/hr Q10H IV 06/18/24 13:15 06/19/24 09:15 100 MLS/HR Insulin Human Regular HS SC 06/18/24 22:00 06/19/24 21:20 4 UNITS Insulin Human Regular AC SC 06/18/24 17:00 06/20/24 11:22 9 UNITS Dextrose 50 ml UD PRN IV 06/18/24 13:15 Diagnostic Test (Pha) 1 strip ACHS 06/18/24 22:00 06/20/24 11:22 1 STRIP Ceftriaxone Sodium 50 ml @ 100 mls/hr DAILY IV 06/19/24 10:00 06/20/24 10:31 100 MLS/HR Laboratory Results Laboratory Tests 06/18/24 05:21 06/19/24 10:48 Urinalysis Test 06/18/24 08:30 Urine Color Yellow (Yellow) Urine Clarity Clear (Clear) Urine pH 5.5 (5.0-9.0) Urine Specific [place] 1.038 (1.001-1.035) Urine Protein 1+ (Negative) H Urine Ketones 2+ (Negative) H Urine Blood 1+ /uL (Negative) H Urine Nitrite Negative (Negative) Urine Bilirubin Negative (Negative) Urine Urobilinogen Normal mg/dL (Negative) Urine Leukocyte Esterase 2+ /uL (Negative) Urine RBC 9 /hpf (0 - 3) Urine Microscopic WBC 18 /HPF (0-3) H Urine Squamous Epithelial Cells Few /hpf (<5) Urine Bacteria Few /hpf (None Seen) H Urine Mucus Few (None Seen) Urine Yeast (Budding) Occasional /hpf (None Urine Glucose 4+ mg/dL (Normal) H Microbiology Microbiology Date/Time Source Procedure Growth Status 06/17/24 20:58 Blood Blood Culture - Preliminary NO GROWTH AFTER 48 HOURS OF INCUBATION. Resulted Assessment/Plan Assessment/Plan Acute diabetic ketoacidosis Type 2 diabetes Uncontrolled diabetes Hypertension UTI Acute kidney injury hemodynamically mediated Hyponatremia Plan Discontinue insulin drip Start Accu-Cheks Subcutaneous Lantus IV fluids Downgrade to med surge Physical therapy Rocephin IV for the UTI Monitor the patient closely 06/19/2024: Continue IV Rocephin Continue the current management including sliding scale and Lantus Physical therapy Discharge planning 06/20/2024: Continue the current management of IV Rocephin Blood glucose is better controlled Continue physical therapy Discharge planning Consult social media campaign manager to assist with discharge planning since the patient says he lives with other people at home but he does not have phone numbers for them and he does not have a ride to go home upon discharge and he does not even know what medications he takes at home Plan discussed with: Patient Date of Service: Jun 20, 2024 Billing Provider: JOSE GILLILAND MD Common Visit Codes: [id number] INP/OBS CARE(HIGH) JOSE GILLILAND MD Jun 20, 2024 12:04
[2024-06-20 16:42] LABS: Potassium 3.6 mmol/L (3.5-5.1)
[2024-06-20 16:53] LABS: Magnesium 1.5 mg/dL (1.6-2.6)
[2024-06-20] MEDS: MAGNESIUM SULFATE 1GM/100ML 100 ML IV ONE (20:37)
[2024-06-21 01:00] VITALS: BP 167/87; PULSE 61; RESP 17; TEMP 98; O2SAT 95
[2024-06-21 04:55] VITALS: BP 135/73; PULSE 54; RESP 20; TEMP 97.8; O2SAT 95
[2024-06-21 06:50] LABS: Basophils # (auto) 0 10 ^3/uL (0-0.2); Basophils % (auto) 0.6 % (0.0-2.0); Eosinophils # (auto) 0.1 10 ^3/uL (0-0.8); Eosinophils % (auto) 1.6 % (0.0-7.0); Hematocrit 42.1 % (41.0-53.0); Hemoglobin 14.5 g/dL (13.5-17.5); Lymphocytes # (auto) 2.3 10 ^3/uL (0.4-5.4); Lymphocytes % (auto) 31.7 % (10.0-50.0); Mean Corpuscular Hemoglobin 30.9 pg (28.0-32.0); Mean Corpuscular Hgb Conc. 34.4 g/dL (32.0-36.0); Mean Corpuscular Volume 89.8 fL (80.0-100.0); Monocytes # (auto) 0.8 10 ^3/uL (0-1.3); Monocytes % (auto) 10.4 % (0.0-12.0); Neutrophils # (auto) 4.1 10 ^3/uL (1.6-8.6); Neutrophils % (auto) 55.7 % (37.0-80.0); Platelet Count (auto) 227 10^3/uL (140-450); Red Blood Cells 4.69 10^6/uL (4.5-5.90); Red Cell Distribution Width 12.8 % (11.8-14.3); White Blood Cell 7.4 10^3/uL (4.4-10.8)
[2024-06-21 06:56] LABS: Alanine Aminotransferase 23 U/L (7-40); Albumin 3.9 g/dL (3.2-4.8); Alkaline Phosphatase 73 U/L (46-116); Anion Gap 8 (5-15); Aspartate Aminotransferase 14 U/L (13-40); BUN/Creatinine Ratio 13.3 (10.0-20.0); Blood Urea Nitrogen 10 mg/dL (9-23); Calcium 9.3 mg/dL (8.7-10.4); Carbon Dioxide 26 mmol/L (20-31); Chloride 102 mmol/L (98-107); Magnesium 1.7 mg/dL (1.6-2.6); Potassium 3.6 mmol/L (3.5-5.1); Sodium 136 mmol/L (136-145)
[2024-06-21 06:57] LABS: Bilirubin, Total 1.2 mg/dL (0.2-1.0); Glucose 129 mg/dL (74-106)
[2024-06-21 09:00] VITALS: BP 160/71; PULSE 66; RESP 18; TEMP 97.5; O2SAT 97
[2024-06-21] MEDS ORDERED: LOSA-534 PO (10:57)
[2024-06-21] MEDS ORDERED: METF-370 PO (10:57)
--- NOTE | 2024-06-21 10:59 | DVHDS2 ---
Discharge Summary Date of Admission Jun 17, 2024 at 23:38 Date of Discharge: Jun 21, 2024 Labs/Diagnostic Data: Laboratory Results Test 06/21/24 09:38 06/21/24 06:15 06/18/24 08:30 06/17/24 22:50 POC Glucose 257 mg/dl (70-106) White Blood Count 7.4 10^3/uL (4.4-10.8) Red Blood Count 4.69 10^6/uL (4.5-5.90) Hemoglobin 14.5 g/dL (13.5-17.5) Hematocrit 42.1 % (41.0-53.0) Mean Corpuscular Volume 89.8 fL (80.0-100.0) Mean Corpuscular Hemoglobin 30.9 pg (28.0-32.0) Mean Corpuscular Hemoglobin Concent 34.4 g/dL (32.0-36.0) Red Cell Distribution Width 12.8 % (11.8-14.3) Platelet Count 227 10^3/uL (140-450) Mean Platelet Volume 8.8 fL (6.9-10.8) Neutrophils (%) (Auto) 55.7 % (37.0-80.0) Lymphocytes (%) (Auto) 31.7 % (10.0-50.0) Monocytes (%) (Auto) 10.4 % (0.0-12.0) Eosinophils (%) (Auto) 1.6 % (0.0-7.0) Basophils (%) (Auto) 0.6 % (0.0-2.0) Neutrophils # (Auto) 4.1 10 ^3/uL (1.6-8.6) Lymphocytes # (Auto) 2.3 10 ^3/uL (0.4-5.4) Monocytes # (Auto) 0.8 10 ^3/uL (0-1.3) Eosinophils # (Auto) 0.1 10 ^3/uL (0-0.8) Basophils # (Auto) 0 10 ^3/uL (0-0.2) Nucleated Red Blood Cells 0.0 % Sodium Level 136 mmol/L (136-145) Potassium Level 3.6 mmol/L (3.5-5.1) Chloride Level 102 mmol/L (98-107) Carbon Dioxide Level 26 mmol/L (20-31) Anion Gap 8 (5-15) Blood Urea Nitrogen 10 mg/dL (9-23) Creatinine 0.75 mg/dL (0.700-1.30) Glomerular Filtration Rate Calc 95 mL/min (>90) BUN/Creatinine Ratio 13.3 (10.0-20.0) Serum Glucose 129 mg/dL (74-106) Calcium Level 9.3 mg/dL (8.7-10.4) Magnesium Level 1.7 mg/dL (1.6-2.6) Total Bilirubin 1.2 mg/dL (0.2-1.0) Aspartate Amino Transferase (AST) 14 U/L (13-40) Alanine Aminotransferase (ALT) 23 U/L (7-40) Alkaline Phosphatase 73 U/L (46-116) Total Protein 6.0 g/dL (5.7-8.2) Albumin 3.9 g/dL (3.2-4.8) Urine Color Yellow (Yellow) Urine Clarity Clear (Clear) Urine pH 5.5 (5.0-9.0) Urine Specific [place] 1.038 (1.001-1.035) Urine Protein 1+ (Negative) Urine Ketones 2+ (Negative) Urine Blood 1+ /uL (Negative) Urine Nitrite Negative (Negative) Urine Bilirubin Negative (Negative) Urine Urobilinogen Normal mg/dL (Negative) Urine Leukocyte Esterase 2+ /uL (Negative) Urine RBC 9 /hpf (0 - 3) Urine Microscopic WBC 18 /HPF (0-3) Urine Squamous Epithelial Cells Few /hpf (<5) Urine Bacteria Few /hpf (None Seen) Urine Mucus Few (None Seen) Urine Yeast (Budding) Occasional /hpf (None Urine Glucose 4+ mg/dL (Normal) Urine Opiates Screen Neg (NEGATIVE) Urine Fentanyl Screen Neg (NEGATIVE) Urine Barbiturates Screen Neg (NEGATIVE) Urine Phencyclidine Screen Neg (NEGATIVE) Urine Amphetamines Screen Neg (NEGATIVE) Urine Benzodiazepines Screen Neg (NEGATIVE) Urine Cocaine Screen Neg (NEGATIVE) Urine Cannabinoids Screen Neg (NEGATIVE) Lactic Acid Level 3.8 mmol/L (0.4-2.0) Test 06/17/24 21:51 06/17/24 20:58 Troponin I High Sensitivity 12 ng/L (</=54) Serum Osmolality 314 mOsm/kg (278-298) Phosphorus Level 3.2 mg/dL (2.4-5.1) B-Type Natriuretic Peptide 39.53 pg/mL (0-100) Beta-Hydroxybutyric Acid 2.492 mmol/L (< 0.4) Plasma/Serum Blood Alcohol 4.3 mg/dL (<10) Other Laboratory Tests 06/21/24 06:15 Brief Hx & Hospital Course: Final diagnoses: Acute diabetic ketoacidosis Type 2 diabetes Uncontrolled diabetes Hypertension UTI Acute kidney injury hemodynamically mediated Hyponatremia He was given IV fluids and insulin and he has blood glucose improved He did not know what medications he takes at home so he was given Lantus here and Accu-Cheks His blood pressure was elevated His magnesium was replaced Physical therapy saw the patient he did well He says he lived at a home with roommates and initially did not know their contact numbers but today apparently we were able to contact the responsible republican and he can be discharged home He will be discharged on metformin 500 mg twice a day and losartan 50 mg daily Follow up with his primary care physician as soon as possible Condition at Discharge: Stable Final Diagnosis/Problems List Acute diabetic ketoacidosis Type 2 diabetes Uncontrolled diabetes Hypertension UTI Acute kidney injury hemodynamically mediated Hyponatremia Discharge Disposition: Home SNF Discharge Will this Physician continue t: No Discharge Instruct/Medications Diet: Consistent carbohydrate, Cardiac 2g Na,low cholest Activity: No Restrictions, As Tolerated Follow Up/Referral: PCP as soon as possible Medications: Losartan 50 mg daily Metformin 500 mg twice daily Discharge Statement: "Patient was advised to return to the ER or call 911 if any headaches, dizziness, shortness of breath, chest pain, abdominal pain, bleeding, fevers, or worsening of medical condition. Patient was counseled about treatment plan, medications, possible side effects, patientverbalized understanding. All questions were answered to the best of my ability. This discharge took greater then 30 minutes in planning, reviewing documentation, counseling the patient, and discussing with other team members." ASSESSMENT ASSESSMENT Assessment Acute diabetic ketoacidosis Type 2 diabetes Uncontrolled diabetes Hypertension UTI Acute kidney injury hemodynamically mediated Hyponatremia Date of Service: Jun 21, 2024 Billing Provider: JOSE GILLILAND MD Common Visit Codes: [id number] DISCH DAY >30min JOSE GILLILAND MD Jun 21, 2024 10:59
[2024-06-21] MEDS: metFORMIN HYDROCHLORIDE 500 MG TAB PO ONE (11:00)
[2024-06-21] MEDS: LOSARTAN POTASSIUM 50 MG TAB PO ONE (12:27)
[2024-06-21 13:00] VITALS: BP 157/84; PULSE 59; RESP 18; TEMP 98; O2SAT 97
== END 2024-06-21 13:46 | disposition home or self-care (01) | DRG 637 ==
LOC: EDBD 20:13 → ER 20:13 → OVERFLOW 23:38 → CENTRAL 06-19 03:33
PROVIDERS: ADMIT Internal Medicine Geriatric Medicine; ATTEND Internal Medicine Geriatric Medicine
DX: E11.10 Type 2 diabetes mellitus with ketoacidosis without coma (principal); G93.41 Metabolic encephalopathy; N17.9 Acute kidney failure, unspecified; E87.1 Hypo-osmolality and hyponatremia; R65.10 Systemic inflammatory response syndrome (SIRS) of non-infectious origin without acute organ dysfunction; N39.0 Urinary tract infection, site not specified; E86.0 Dehydration; I10 Essential (primary) hypertension; Z79.4 Long term (current) use of insulin; Z79.899 Other long term (current) drug therapy
CPT/HCPCS: 36415; 36600; 70450; 71045; 80048; 80053; 80307; 80320; 81001; 82010; 82805; 82962; 83605; 83735; 83880; 83930; 84100; 84132; 84484; 85025; 87040; 93005; 96372; 96374; 97110; 97116; 97163; 97530; 99291; G0378; J1815